=== PATIENT | male | born 1965 | race Caucasian/White ===

== ENCOUNTER → 2023-08-09 | Outpatient (CLI) | payer BC, SELFPAY ==
--- NOTE | 2023-08-09 11:30 | EKG12_ITS ---
Test Reason : PREOP Blood Pressure : / mmHG Vent. Rate : 074 BPM Atrial Rate : 074 BPM P-R Int : 126 ms QRS Dur : 080 ms QT Int : 386 ms P-R-T Axes : 030 003 049 degrees QTc Int : 428 ms Normal sinus rhythm with sinus arrhythmia Normal ECG Confirmed by LOUIE KIRKLAND, CHITRA ([id number]), editor index JULIA JANG ([id number]) on 08/09/2023 1:41:20 PM Referred By: Antonieta Pruitt Confirmed By:CHITRA PALMA MD
--- NOTE | 2023-08-09 11:54 | CT_ITS ---
CT LEFT LOWER EXTREMITY WITH 3-D IMAGING CLINICAL INDICATION: LT KNEE OA/PAIN *AMY PROTOCOL* TECHNIQUE: Axial CT images of the left lower extremity including left hip, left knee, and left ankle) was performed without IV contrast material. Coronal and sagittal reformats were provided. RADIATION DOSAGE (If Supplied By Facility): CTDIvol = ( 18.46 ) mGy, DLP = ( 1143.78 ) mGycm COMPARISON: No relevant prior comparison study available. FINDINGS: Bones: Normal left hip joint. There is moderate degenerative arthrosis of the medial femorotibial compartment of the left knee, with joint space narrowing, marginal osteophyte formation, and subchondral sclerosis/cyst formation. There is mild degenerative arthrosis of the patellofemoral and lateral femorotibial compartments of the left knee with marginal osteophyte formation. There is degenerative arthrosis of the proximal tibiofibular joint with marginal osteophyte formation and extensive subchondral cyst formation. Normal left ankle. Osseous structures are intact without evidence of fracture or dislocation. No lytic or blastic osseous masses. Soft Tissues: There is a small left knee joint effusion. The deep soft tissue structures are unremarkable. The superficial soft tissues are unremarkable without evidence of edema, hematoma, or foreign body. There are mild atherosclerotic calcifications. CT/Extremity Lower without Contra IMPRESSION: Tricompartment degenerative arthrosis of the left knee, most pronounced in the medial femorotibial compartment. Proximal tibiofibular arthrosis with marginal osteophyte formation and extensive subchondral cyst formation. Small left knee joint effusion. Electronically Signed: Rico Fajardo MD at 10:17 EDT ,
[2023-08-09 12:25] LABS: Absolute Lymphocyte Count 1.84 X10^3/uL (0.83-4.51); Absolute Neutrophil Count 3.7 X10^3/uL (2.0-7.7); Basophil# 0.04 X10^3/uL; Basophil% 0.6 % (0-1); Eosinophil# 0.25 X10^3/uL; Hematocrit 43.7 % (40-54); Hemoglobin 15.2 g/dL (13.0-16.5); Lymphocyte # 1.84 X10^3/ul (0.83-4.51); Lymphocyte % 29.3 % (19-41); Mean Corp Hgb Conc 34.8 g/dL (32-36); Mean Corpuscular Hgb 30.2 pg (27.0-32.0); Mean Corpuscular Volume 86.9 fL (80-94); Mean Platelet Vol. 11.3 fl (6.2-12.0); Monocyte# 0.43 X10^3/uL; Monocyte% 6.8 % (0-10); NRBC Flagged by Analyzer 0 % (0-5); Neutrophil # 3.69 X10^3/uL (2.7-7.7); Neutrophil % 58.8 % (47-70); Platelet Count 197 K/mm3 (150-450); RBC Distribution Width SD 38.3 fl (35.1-43.9); Red Blood Count 5.03 M/mm3 (4.6-6.2); White Blood Count 6.3 K/mm3 (4.4-11.0)
[2023-08-09 13:24] LABS: Anion Gap 9 (5-15); BUN 14 mg/dL (7-18); BUN/Creat Ratio 15.1 RATIO (10-20); Calcium,Total 9.1 mg/dL (8.5-10.1); Chloride 102 mmol/L (98-107); Creatinine, Serum 0.93 mg/dL (0.70-1.30); EST Glomerular Filtration Rate 89 mL/min (>60); Est Glom Filt Rate - Afr Amer 107 mL/min (>60); Glucose 227 mg/dL (74-106); Potassium 3.9 mmol/L (3.5-5.1); Sodium Level 138 mmol/L (136-145)
[2023-08-09 13:26] LABS: Hemoglobin A1c 6.6 % (3.8-5.6)
== END | disposition home or self-care (01) ==
PROVIDERS: PCP Family Medicine; Referring Provider Physician Assistant Surgical; Visit Provider Physician Assistant Surgical
DX: Z01.818 Encounter for other preprocedural examination (principal); Z01.810 Encounter for preprocedural cardiovascular examination; M17.32 Unilateral post-traumatic osteoarthritis, left knee; M25.562 Pain in left knee
CPT/HCPCS: 36415; 73700; 80048; 83036; 85025; 93005